=== PATIENT | female | born 2005 | race Caucasian/White ===

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

== ENCOUNTER 2024-02-05 14:30 | Outpatient (CLI) | payer BC, MEDICAID, SELFPAY ==
[2024-02-05 14:49] VITALS: BP 116/72; PULSE 79
[2024-02-05 15:03] VITALS: BMI 27.1
[2024-02-05 15:07] VITALS: BP 117/55; PULSE 75
[2024-02-05 15:19] VITALS: BP 105/54; PULSE 71
[2024-02-05 15:20] LABS: Bacteria Urine 2+ /hpf; Bilirubin Urine Neg (Negative); Blood Urine Neg (Negative); Glucose Urine UA Norm (Normal); Ketones Urine Negative (Negative); Leukocyte Esterase Urine 2+ (Negative); Nitrate Urine Negative (Negative); Protein Urine Neg (Negative); RBC Urine 0-4 /hpf (0-2); Urine Appearance Hazy (CLEAR); Urine Color Light yellow (Yellow); Urobilinogen Urine Neg (Negative); pH Urine 6.5 (5-7)
[2024-02-05 15:21] LABS: Add Urine Culture? Yes; Amorphous Sediment Urine 1+ /hpf
[2024-02-05 15:34] VITALS: BP 106/56; PULSE 75
--- NOTE | 2024-02-05 15:42 | PC.NURSE ---
Prescription called to [facility] at this time.
== END 2024-02-05 15:38 | disposition home or self-care (01) ==
LOC: OPOB 14:35 → OBGYN 14:41
PROVIDERS: Visit Provider Obstetrics & Gynecology
DX: O26.899 Other specified pregnancy related conditions, unspecified trimester (principal); Z3A.00 Weeks of gestation of pregnancy not specified; M54.50 Low back pain, unspecified
CPT/HCPCS: 81001; 87086; 99211

== ENCOUNTER → 2024-02-22 07:50 | Outpatient (BNVA) | payer BC, MEDICAID, SELFPAY | PROVIDERS: Visit Provider Obstetrics & Gynecology | DX: Z34.90 Encounter for supervision of normal pregnancy, unspecified, unspecified trimester (principal); Z3A.13 13 weeks gestation of pregnancy | CPT/HCPCS: 82950; 84315 ==

== ENCOUNTER → 2024-02-29 14:05 | Outpatient (BNVA) | payer BC, MEDICAID, SELFPAY | PROVIDERS: Visit Provider Obstetrics & Gynecology | DX: Z34.93 Encounter for supervision of normal pregnancy, unspecified, third trimester (principal); Z3A.29 29 weeks gestation of pregnancy | CPT/HCPCS: 76816 ==

== ENCOUNTER → 2024-04-19 08:28 | Outpatient (BNVA) | payer BC, MEDICAID, SELFPAY | PROVIDERS: Visit Provider Obstetrics & Gynecology | DX: Z34.90 Encounter for supervision of normal pregnancy, unspecified, unspecified trimester (principal); Z3A.00 Weeks of gestation of pregnancy not specified | CPT/HCPCS: 84315; 87081 ==

== ENCOUNTER 2024-05-09 02:20 | Inpatient (IN) | payer MEDICAID, SELFPAY ==
[2024-05-09] VITALS (64 sets, daily range): BP systolic 90–130; BP diastolic 49–85; PULSE 48–113; RESP 16–18; TEMP 36.1–36.9; O2SAT 84–100; BMI 28.5
[2024-05-09 01:13] LABS: Nitrazine Paper, PH Negative
[2024-05-09 01:17] LABS: Actim Prom Positive
[2024-05-09 02:11] LABS: Basophils # 0.1 10^3/uL (0.0-0.1); Basophils % 0.5 %; Eosinophils % 0.3 %; Hematocrit 33.6 % (36-47); Lymphocytes # 2.5 10^3/uL (1.5-6.5); Lymphocytes % 20.8 %; Mean Corpuscular HGB Conc 33.6 g/dL (30-55); Mean Corpuscular Hemoglobin 32.3 pg (27-33); Mean Platelet Volume 9.8 fL (7.4-10.4); Monocytes # 0.9 10^3/uL (0.2-0.9); Monocytes % 7.1 %; Neutrophils # 8.51 10^3/uL (1.8-8.0); Neutrophils % 70.8 %; Nucleated Red Blood Cells % 0 %; Platelet Count 187 10^3/cmm (157-399); Red Cell Distribution Width 11.9 % (12.1-15.1); White Blood Count 12.04 10^3/uL (4.5-13.0)
[2024-05-09] MEDS: dextrose 5%-lactated ringers 1,000 ML 125 ML IV (03:21)
[2024-05-09] MEDS: lactated ringers 1,000 ML 999 ML IV ×2 (03:22→05:25)
[2024-05-09] MEDS: vancomycin 1,000 MG in sodium chloride 0.9% 250 ML 250 MG IV (03:22)
[2024-05-09] MEDS: ondansetron 2 mg/ML SDV 2 mL 4 MG IVP (04:31)
--- NOTE | 2024-05-09 04:50 | P.ANESUD_ITS ---
Pre-Anesthetic Update Pre-Anesthetic Assessment: Date of Surgery/Procedure: 05/09/24 Preop Azucena gnosis: Labor pain Proposed Procedure: LORETTA Any changes to Pre-Anesthetic Assessment?: No Labs Last 48hrs: Short CBC 05/09/24 Range/Units 02:00 WBC 12.04 (4.5-13.0) 10^3/ uL Hgb 11.30 L (12.4-14.8) g/dL Hct 33.6 L (36-47) % MCV 96.0 (85-98) fl Plt Count 187 (157-399) 10^3/c mm Neut % (Auto) 70.8 % Neut # (Auto) 8.51 H (1.8-8.0) 10^3/u L Blood Bank 05/09/24 02:00 Blood Type A Positive Rho(D) Type Rh positive Antibody Screen Negative Vitals: Pulse Rate 68 05/09/24 04:45 Respiratory Effort Spontaneous, Non- Labored 05/09/24 01:58 Respiratory Depth Normal 05/09/24 01:58 Respiratory Patter n Normal 05/09/24 01:58 Blood Pressure 119/73 05/09/24 04:45 Pulse Oximetry 84 L 05/09/24 04:43 Oxygen Delivery Me thod Room Air 05/09/24 01:58 Exam: Pre-Anes Outpt Exam: alert, oriented x 3, clear to auscultation bilaterally and regular rate & rhythm Cardiac Studies: No Data to Display
--- NOTE | 2024-05-09 04:51 | ANES.PROC ---
Anesthesia Procedures Procedure/Date: 05/09/24 LORETTA Epidural: Time Out Performed: Yes Consents Signed: Procedure Consent Consent: from patient Lumbar Level: L3-L4 Epidural position: sitting Epidural procedure: sterile prep of area, 1% lidocaine to numb the area, 18 g needle, neg for paresthesia, test dose given (4cc), 1.5% xylocaine 1:200k epi, 0.2% Ropivacaine bolus ml (4cc with Fentanyl 100mcg), placed PCEA, no systemic response, sterile dressing applied and 0.2% Ropiavacaine @ mls/hr (10cc/hour) Additional Comments: Pt tolerated well
[2024-05-09] MEDS: ROPivacaine syringe 100 MG/50 ML SYRINGE 10 MG EPIDURAL (04:57)
--- NOTE | 2024-05-09 07:12 | PM.OPHPUD ---
Labor & Delivery H&P Update Date of Procedure: May 09, 2024 Date H&P Performed: 05/02/24 H&P update information: I have reviewed H&P completed within last 30 days, I have examined patient prior to procedure and Changes to prior documentation as noted here (Dilation 4 cm) Admission Diagnosis: Preop diagnosis: Labor pain
--- NOTE | 2024-05-09 07:14 | PM.DELIVERY ---
Delivery Note: Date of delivery: May 09, 2024 Pre-delivery diagnoses: Term Premature rupture of membrane Post-delivery diagnoses: Term Procedure: A spontaneous vaginal delivery Op report anesthesia: Epidural Delivering Physician: Peter Dorantes MD Estimated blood loss (mL): 300 Findings: Female , with weight 2830 g, Apgars 8/9. Pre-Delivery Course: Ms. Morin is a 18 year old G1 patient with LMP of 08/13/23, ROLANDO 05/12/24, with an EGA at 39 weeks 3 days came to labor and delivery referring rupture membranes for 30 hours. On examination the cervix was 4 cm dilated with contractions every 3 to 5 minutes. She was admitted and started on oxytocin for labor augmentation. Delivery: The patient was noted to be complete and pushing, so was placed in the dorsal lithotomy position, prepped and draped in the usual sterile fashion for a vaginal delivery. Pt. Noted to have epidural anesthesia. At 653 the patient delivered a viable term female infant weighing 2830 g with scores of 8 and 9 at one and five minutes, respectively. The vertex was delivered spontaneously over intact perineum. The patient was asked to push and the head delivered spontaneously in the BAR position, over an intact perineum. A nuchal cord was checked and 1 noted, and delivered through around head as necessary. The anterior shoulder delivered easily and the posterior shoulder followed. The remainder of the infant was easily delivered and the oropharynx and nasopharynx was bulb suctioned. The was noted to have spontaneous cry and spontaneous movement of all four extremities. The cord was clamped x 2 and cut and noted to have 2 arteries and one vein. The was passed to the mother's abdomen where nursing personnel were in attendance. The placenta delivered intact spontaneously and the uterus was explored. 20 units of Pitocin was placed in the IV bag to firm the uterus. Examination of the cervix and vaginal vault did not reveal any lacerations. A vaginal pack was then placed. Examination of the perineum showed first-degree laceration. The laceration was repaired with 3-0 Vicryl in the normal fashion in a running locking fashion. The vaginal pack was then removed. The patient tolerated this procedure well, and recovered in L&D with her in their LDR room. All sponge and needle counts were correct. History History History 1 Term 0 Miscarriages/Ectopic Living Children A&P Assessment and plan (1) Term delivered: (2) Premature rupture of membranes: Plan observation Coding Level of Care Code Acute Code for Chg Fwd Diagnoses Term delivered O80 Premature rupture of membranes O42.90
[2024-05-09] MEDS: ibuprofen 800 mg tablet PO ×3 (09:07→20:59)
[2024-05-09] MEDS: benzocaine-menthol 78 gm Canister 1 SPRAY TOPICAL (09:08)
[2024-05-09] MEDS: PRENATAL VIT NO.130/IRON/FOLIC 1 EACH TABLET PO (09:08)
[2024-05-09] MEDS: docusate sodium 100 mg Capsule PO ×2 (09:08→20:59)
--- NOTE | 2024-05-09 13:03 | PC.NURSE ---
Patient ambulating with RN to room at this time.
--- NOTE | 2024-05-09 13:04 | PC.NURSE ---
05/09/24 0910: Patient assisted to bathroom by RN at this time. Ambulating well.
--- NOTE | 2024-05-09 13:05 | PC.NURSE ---
05/09/24 0930: Patient ambulating to room with baby and RN at this time.
--- NOTE | 2024-05-09 13:47 | ANE.PACU2 ---
Inpatient post-anesthesia follow up: Airway intact: Yes Vital signs: Temperature 98.1 F Pulse Rate 79 Respiratory Rate 16 Blood Pressure 112/66 Pulse Oximetry 100 Oxygen Delivery Me thod Room Air Oxygen Flow Rate Fraction of Inspir ed Oxygen Hydration adequate: Yes Nausea and vomiting: No Pain level: 2 Mental status: Baseline Epidural Start/End: Epidural Start Date: 05/09/24 Epidural Start Time: 04:34 Epidural End Date: 05/09/24 Epidural End Time: 08:00
[2024-05-09 19:58] LABS: Hematocrit 33.3 % (36-47); Mean Corpuscular HGB Conc 33.3 g/dL (30-55); Mean Corpuscular Hemoglobin 32.5 pg (27-33); Mean Corpuscular Volume 97.4 fl (85-98); Mean Platelet Volume 10.1 fL (7.4-10.4); Platelet Count 187 10^3/cmm (157-399); Red Blood Count 3.42 10^6/uL (3.85-5.65); Red Cell Distribution Width 11.9 % (12.1-15.1); White Blood Count 17.06 10^3/uL (4.5-13.0)
[2024-05-10] MEDS: HYDROcodone-acetaminophen 5-325 mg Tablet PO (02:54)
[2024-05-10 05:23] VITALS: BP 99/61; PULSE 59; RESP 16; TEMP 36.6; O2SAT 97
[2024-05-10] MEDS: docusate sodium 100 mg Capsule PO (08:48)
[2024-05-10] MEDS: ibuprofen 800 mg tablet PO (08:48)
[2024-05-10] MEDS: benzocaine-menthol 78 gm Canister 1 SPRAY TOPICAL (08:48)
[2024-05-10] MEDS: PRENATAL VIT NO.130/IRON/FOLIC 1 EACH TABLET PO (08:48)
[2024-05-10 10:00] VITALS: BP 110/63; PULSE 65; RESP 15; TEMP 36.6; TEMP 36.7; O2SAT 98
[2024-05-10 12:09] VITALS: BP 117/68; PULSE 97; RESP 16; TEMP 36.6; O2SAT 99
--- NOTE | 2024-05-10 13:35 | PM.OBGYDC ---
Discharge Providers EMBOSSING TOOLSETTER Date of Admission: 05/09/24 02:20 Date of Discharge: 05/10/24 Attending Provider at Admission: Peter Dorantes MD Attending Provider at Discharge: Alex Dempsey MD Consults: none Primary EMBOSSING TOOLSETTER: Alex Dempsey MD Diagnoses at Discharge Discharge Diagnosis (1) Term delivered: Details from hospital stay: patient admitted at 39 w 4 d with spontaneous rupture of membranes cervix was at 4 cm on admission pitocin augmentation was started patient proceeded to spontaneous vaginal delivery of vigorous a first-degree perineal laceration was repaired patient did well without any complications She was discharged to home on the first day Status: Inactive (2) Premature rupture of membranes: Details from hospital stay: see above Status: Inactive Reason for Visit Reason for Visit: Possible ROM Brief History: 39 w 3 d with spontaneous rupture of membranes Hospital Course Hospital Course patient admitted at 39 w 4 d with spontaneous rupture of membranes cervix was at 4 cm on admission pitocin augmentation was started patient proceeded to spontaneous vaginal delivery of vigorous a first-degree perineal laceration was repaired patient did well without any complications She was discharged to home on the first day Information Peripartum Data: Infant Delivery Method: Vaginal Laceration description: Perineal - 1st Degree Episiotomy description: None complications: none Physical Exam Narrative: afebrile, VS normal comfortable, awake, alert Abd: soft, nontender. fundus firm Ext: no edema; nontender Urinary Catheter Management: Daly Latex: Cath Placed During This Visit: yes, but has since been removed by the nurse Reason for Continuing Indwelling Catheter: Other Urinary Catheter Date of Insertion: 05/09/24 Urinary Catheter Time of Insertion: 05:10 Date Urinary Catheter Removed: 05/09/24 Time Urinary Catheter Discontinued: 06:43 History History History 1 Term 0 Miscarriages/Ectopic Living Children Discharge Data Studies Completed and Pending Laboratory Results WBC 17.06 10^3/uL (4.5-13.0) H 05/09/24 19:28 RBC 3.42 10^6/uL (3.85-5.65) L 05/09/24 19:28 Hgb 11.10 g/dL (12.4-14.8) L 05/09/24 19:28 Hct 33.3 % (36-47) L 05/09/24 19:28 MCV 97.4 fl (85-98) 05/09/24 19:28 MCH 32.5 pg (27-33) 05/09/24 19:28 MCHC 33.3 g/dL (30-55) 05/09/24 19:28 RDW 11.9 % (12.1-15.1) L 05/09/24 19:28 Plt Count 187 10^3/cmm (157-399) 05/09/24 19:28 MPV 10.1 fL (7.4-10.4) 05/09/24 19:28 Neut % (Auto) 70.8 % 05/09/24 02:00 Lymph % (Auto) 20.8 % 05/09/24 02:00 Ocean % (Auto) 7.1 % 05/09/24 02:00 Eos % (Auto) 0.3 % 05/09/24 02:00 Baso % (Auto) 0.5 % 05/09/24 02:00 Neut # (Auto) 8.51 10^3/uL (1.8-8.0) H 05/09/24 02:00 Lymph # (Auto) 2.5 10^3/uL (1.5-6.5) 05/09/24 02:00 Ocean # (Auto) 0.9 10^3/uL (0.2-0.9) 05/09/24 02:00 Eos # (Auto) 0.0 10^3/uL (0.0-0.8) 05/09/24 02:00 Baso # (Auto) 0.1 10^3/uL (0.0-0.1) 05/09/24 02:00 Nucleated RBC % (auto) 0 % 05/09/24 02:00 Nucleated RBCs # 0.0 /100WBC 05/09/24 02:00 Insulin-like GF I Positive 05/09/24 01:07 Fluid pH (paper) Negative 05/09/24 01:10 C.trachomatis RNA (TMA) Not detected (NOT DETECTED) 05/10/24 10:00 Chlamydia/GC Comment See note 05/10/24 10:00 N.gonorrhoeae RNA (TMA) Not detected (NOT DETECTED) 05/10/24 10:00 Blood Type A Positive 05/09/24 02:00 Rho(D) Type Rh positive 05/09/24 02:00 Antibody Screen Negative 05/09/24 02:00 Procedures Performed labor augmentation vaginal delivery repair of perineal laceration Vitals Last Vital Signs Temp 98 F 05/10/24 12:09 Pulse 97 05/10/24 12:09 Resp 16 05/10/24 12:09 BP 117/68 05/10/24 12:09 Pulse Ox 99 05/10/24 12:09 O2 Del Method Room Air 05/10/24 10:00 Results Labs OB ([facility]): Obstetrics US 02/29/24 Blood Type A Positive 05/09/24 Antibody Screen Negative 05/09/24 Hct 33.3 % (36-47) L 05/09/24 Hgb 11.10 g/dL (12.4-14.8) L 05/09/24 Rho(D) Type Rh positive 05/09/24 Plt Count 187 10^3/cmm (157-399) 05/09/24 Hep Bs Antigen Non-reactive (Nonreactive) 11/19/23 Hepatitis C Antibody Non-reactive (Nonreactive) 11/19/23 Rubella IgG Antibody 56.5 IU/mL (0.0-10.0) H 11/19/23 RPR Nonreactive (Nonreactive) 11/19/23 HIV 1&2 Ab & HIV 1 Ag Non-reactive (Non-Reactiv) 11/19/23 TSH 3.67 uIU/mL (0.27-4.20) 11/19/23 Free T4 1.35 ng/dL (0.93-1.60) 11/19/23 C.trachomatis RNA (TMA) Not detected (NOT DETECTED) 05/10/24 N.gonorrhoeae RNA (TMA) Not detected (NOT DETECTED) 05/10/24 Chlamydia/GC Comment See note 05/10/24 Cystic Fibrosis Screen Negative 11/19/23 Glucose 1 Hr 50 gm 108 mg/dL (85-140) 02/22/24 HCG, Qual Positive (Negative) H 10/12/23 Urine Opiates Screen Negative ng/mL (Negative) 11/19/23 Ur Barbiturates Screen Negative ng/mL (Negative) 11/19/23 Ur Phencyclidine Scrn Negative ng/mL (Negative) 11/19/23 Ur Amphetamines Screen Negative ng/mL (Negative) 11/19/23 U Benzodiazepines Scrn Negative ng/mL (Negative) 11/19/23 Urine Cocaine Screen Negative ng/mL (Negative) 11/19/23 U Marijuana (THC) Screen Negative ng/mL (Negative) 11/19/23 Micro Urine Specimen 02/05/24 Discharge Plan Discharge Patient Disposition: Home Condition: Stable Prescriptions: Continued Classic 28 mg iron- 800 mcg tablet 1 tab PO DAILY Qty: 30 5RF Discharge Orders: Discharge Order (Routine); Ordered 05/10/24 Ordered By: Alex Dempsey Referrals: Alex Dempsey MD [Physician] - (6 week follow up on June 21 @ 1:[address] Dempsey at [facility]. ) Discharge Diet: Usual diet Discharge Activity: Increase activity as tolerated Patient Instructions: Depression (DC), Preeclampsia and Eclampsia After Delivery (GEN), Vaginal Delivery (DC), Opioid Safety, OB Home Care, OB Vaginal Deliveries - [facility], Abnormal Bleeding Discharge Attestations EMBOSSING TOOLSETTER Time Spent in Discharge Care*: less than 30 min Coding Level of Care Code Acute Code for Chg Fwd Diagnoses Term delivered O80 Premature rupture of membranes O42.90 Time Spent (min) 20
[2024-05-10 13:54] LABS: Chlamydia Trachomatis RNA TMA NOT DETECTED (NOT DETECTED); Neisseria Gonorrhoeae RNA, TMA NOT DETECTED (NOT DETECTED)
== END 2024-05-10 12:15 | disposition home or self-care (01) | DRG 807 ==
LOC: OPOB 07:13 → OBGYN 07:13
PROVIDERS: Admitting Provider Obstetrics & Gynecology; Visit Provider Obstetrics & Gynecology
DX: O42.92 Full-term premature rupture of membranes, unspecified as to length of time between rupture and onset of labor (principal); Z37.0 Single live birth; Z3A.39 39 weeks gestation of pregnancy; O70.0 First degree perineal laceration during delivery; O69.81X0 Labor and delivery complicated by cord around neck, without compression, not applicable or unspecified
CPT/HCPCS: 36415; 51702; 59025; 59409; 83986; 84112; 85025; 85027; 86850; 86900; 87491; 87591; 96374; 99211; A4930; J2405; J2795; J3010; J3370; J7050; J7120; J7121

== ENCOUNTER → 2024-06-24 10:57 | Outpatient (BNVA) | payer MEDICAID, SELFPAY | PROVIDERS: Visit Provider Obstetrics & Gynecology | DX: Z30.9 Encounter for contraceptive management, unspecified (principal) | CPT/HCPCS: 81025 ==

== ENCOUNTER → 2024-09-07 09:26 | Outpatient (BNVA) | payer MEDICAID, SELFPAY | PROVIDERS: Visit Provider Obstetrics & Gynecology | DX: N93.9 Abnormal uterine and vaginal bleeding, unspecified (principal) | CPT/HCPCS: 87624 ==

== ENCOUNTER → 2024-09-28 08:05 | Outpatient (BNVA) | payer MEDICAID, SELFPAY | PROVIDERS: Visit Provider Obstetrics & Gynecology | DX: N93.9 Abnormal uterine and vaginal bleeding, unspecified (principal); N88.4 Hypertrophic elongation of cervix uteri | CPT/HCPCS: 76830 ==